=== PATIENT | female | born 1985 | race Caucasian/White ===

== ENCOUNTER 2020-09-24 10:11 | Emergency (ER) | payer SELFPAY ==
[2020-09-24] MEDS ORDERED: CEPHALEXIN 250 MG CAP ONE (12:23)
[2020-09-24] MEDS ORDERED: SMZ./TMP. 800/160 MG TABLET ONE (12:23)
--- NOTE | 2020-09-24 12:28 | ER ---
Nurse's Notes [facility] Name: Reno Call Age: 35 yrs Sex: Female : 1985 Arrival Date: 09/24/2020 Time: 10:16 Bed 8 Private MD: Diagnosis: Cutaneous abscess of right hand Presentation: 09/24 10:24 Chief complaint: Patient states: Abscess with blistering to R outer hand since last ll1 night getting progressively worse. No fever. Coronavirus screen: Client denies travel out of the [place] in the last 14 days. congestion, Client presents with at least one sign or symptom that may indicate coronavirus-19. Standard/surgical mask placed on the client. Ebola Screen: Patient denies travel to an Ebola-affected area in the 21 days before illness onset. Initial Sepsis Screen: Does the patient meet any 2 criteria? No. Patient's initial sepsis screen is negative. Does the patient have a suspected source of infection? Yes: Skin breakdown/wound. Risk Assessment: Do you want to hurt yourself or someone else? Patient reports no desire to harm self or others. Onset of symptoms was September 23, 2020. 10:24 Method Of Arrival: Ambulatory ll1 10:24 Acuity: JADA 4 ll1 Historical: - Allergies: 10:25 No Known Allergies; ll1 - PMHx: 10:25 None; ll1 - PSHx: 10:25 Cholecystectomy; ll1 - Immunization history:: Flu vaccine is not up to date. - Social history:: Smoking status: Patient denies any tobacco usage or history of. Screenin:24 Abuse screen: Denies threats or abuse. Denies injuries from another. Nutritional ph screening: No deficits noted. Tuberculosis screening: No symptoms or risk factors identified. Fall Risk None identified. Assessment: 12:10 General: Appears in no apparent distress. comfortable, Behavior is calm, cooperative, ph appropriate for age. Pain: Complains of pain in right hand. Neuro: Level of Consciousness is awake, alert, obeys commands, Oriented to person, place, time, situation. Cardiovascular: No deficits noted. Respiratory: Airway is patent Respiratory effort is even, unlabored. Derm: Skin is healthy with good turgor, Skin is pink, warm \T\ dry. Rash noted that is red, raised, vesicular, swelling and redness also noted to dorsal aspect of R hand. Musculoskeletal: Circulation, motion, and sensation intact. Range of motion: intact in all extremities. 12:36 Reassessment: Patient appears in no apparent distress at this time. Patient and/or ph family updated on plan of care and expected duration. Pain level reassessed. Patient is alert, oriented x 3, equal unlabored respirations, skin warm/dry/pink. Vital Signs: 10:24 BP 126 / 90; Pulse 89; Resp 17; Temp 98.3; Pulse Ox 100% ; Weight 91.63 kg; Height 5 ll1 ft. 3 in. (160.02 cm); Pain 6/10; 12:36 BP 118 / 86; Pulse 78; Resp 18; Temp 98.2; Pulse Ox 99% on R/A; ph 10:24 Body Mass Index 35.78 (91.63 kg, 160.02 cm) ll1 ED Course: 10:16 Patient arrived in ED. am2 10:25 Triage completed. ll1 10:25 Arm band placed on. ll1 10:30 Silvia Bautista FNP-C is PHCP. kb 10:30 Alex Morel MD is Attending Physician. kb 11:04 Patient placed in an exam room, on a stretcher. ll1 11:09 Chayito Lord, RN is Primary Nurse. ph 11:24 Patient has correct armband on for positive identification. Bed in low position. Call ph light in reach. Side rails up X 1. Pulse ox on. NIBP on. Door closed. Noise minimized. 12:37 No provider procedures requiring assistance completed. Patient did not have IV access ph during this emergency room visit. Administered Medications: 12:10 Drug: Bactrim (trimethoprim-sulfamethoxazole) (160 mg-800 mg (DS) 1 tablet Route: PO; ph 12:37 Follow up: Response: No adverse reaction ph 12:10 Drug: KeFLEX (cephalexin) 500 mg Route: PO; ph 12:37 Follow up: Response: No adverse reaction ph Outcome: 12:28 Discharge ordered by . kb 12:37 Discharged to home ambulatory. ph 12:37 Condition: good 12:37 Discharge instructions given to patient, Instructed on discharge instructions, follow up and referral plans. medication usage, Demonstrated understanding of instructions, follow-up care, medications, Prescriptions given X 2. 12:38 Patient left the ED. ph Signatures: Silvia Bautista, STEVEN-C BRUSH FILLER HAND-Chayito Bronson, RN RN ph Laura Sebastian amEscobar Tavares RN RN ll1
--- NOTE | 2020-09-24 12:28 | EDPHYS ---
Physician Documentation [facility] Name: Reno Call Age: 35 yrs Sex: Female : 1985 Arrival Date: 09/24/2020 Time: 10:16 Bed 8 Private MD: ED Physician Alex Morel HPI: 09/24 14:05 This 35 yrs old Female presents to ER via Ambulatory with complaints of Hand kb Swelling. 14:05 The patient has not recently seen a physician. kb 14:06 the patient presents with a swollen area of the dorsum of right hand and medial aspect kb of right hand. Description: erythematous, swollen, warm. Onset: The symptoms/episode began/occurred this morning. Possible cause(s): unknown. Associated signs and symptoms: Pertinent positives: erythema, swelling. Modifying factors: the symptoms are alleviated by nothing, the symptoms are aggravated by nothing. Severity of symptoms: At their worst the symptoms were moderate, in the emergency department the symptoms are unchanged. The patient has not experienced similar symptoms in the past. Pt reports she thinks she was bit by something last night because she woke up with redness and swelling to right hand. States this happens anytime she is bitten or stung by an insect. Also reports cough and congestion for a few days. Historical: - Allergies: 10:25 No Known Allergies; ll1 - PMHx: 10:25 None; ll1 - PSHx: 10:25 Cholecystectomy; ll1 - Immunization history:: Flu vaccine is not up to date. - Social history:: Smoking status: Patient denies any tobacco usage or history of. ROS: 14:03 Constitutional: Negative for fever, chills, and weight loss. kb 14:03 ENT: Positive for rhinorrhea, sinus congestion. 14:03 Respiratory: Positive for cough, Negative for dyspnea on exertion, hemoptysis, orthopnea, pleurisy, shortness of breath, sputum production, wheezing. 14:03 Skin: Positive for abscess, erythema, swelling, of the medial aspect of right hand and dorsum of right hand. 14:03 All other systems are negative. Exam: 14:04 Constitutional: This is a well developed, well nourished patient who is awake, alert, kb and in no acute distress. Head/Face: Normocephalic, atraumatic. Cardiovascular: Regular rate and rhythm with a normal S1 and S2. No gallops, murmurs, or rubs. No pulse deficits. Respiratory: Respirations even and unlabored. No increased work of breathing, no retractions or nasal flaring. Abdomen/GI: Soft, non-tender. No distention MS/ Extremity: Pulses equal, no cyanosis. Neurovascular intact. Full, normal range of motion. Neuro: Awake and alert, GCS 15, oriented to person, place, time, and situation. Moves all extremities. Normal gait. Psych: Awake, alert, with orientation to person, place and time. Behavior, mood, and affect are within normal limits. 14:04 ENT: External ear(s): are unremarkable, Ear canal(s): are normal, TM's: are normal, Nose: is normal, Mouth: is normal, Posterior pharynx: is normal. 14:04 Skin: abscess, that is small, of the medial aspect of right hand, with induration, with surrounding cellulitis, that is moderate. Vital Signs: 10:24 BP 126 / 90; Pulse 89; Resp 17; Temp 98.3; Pulse Ox 100% ; Weight 91.63 kg; Height 5 ll1 ft. 3 in. (160.02 cm); Pain 6/10; 12:36 BP 118 / 86; Pulse 78; Resp 18; Temp 98.2; Pulse Ox 99% on R/A; ph 10:24 Body Mass Index 35.78 (91.63 kg, 160.02 cm) ll1 MDM: 11:01 Patient medically screened. kb 14:02 Data reviewed: vital signs, nurses notes. Data interpreted: Pulse oximetry: on room air kb is 99 %. Interpretation: normal. Counseling: I had a detailed discussion with the patient and/or guardian regarding: the historical points, exam findings, and any diagnostic results supporting the discharge/admit diagnosis, the need for outpatient follow up, a family practitioner, to return to the emergency department if symptoms worsen or persist or if there are any questions or concerns that arise at home. 14:05 ED course: Pt evaluated by ERP as well. Recommends outpatient antibiotics. kb Administered Medications: 12:10 Drug: Bactrim (trimethoprim-sulfamethoxazole) (160 mg-800 mg (DS) 1 tablet Route: PO; ph 12:37 Follow up: Response: No adverse reaction ph 12:10 Drug: KeFLEX (cephalexin) 500 mg Route: PO; ph 12:37 Follow up: Response: No adverse reaction ph Disposition: 17:32 Co-signature as Attending Physician, Alex Morel MD. rn Disposition: 09/24/20 12:28 Discharged to Home. Impression: Cutaneous abscess of right hand. - Condition is Stable. - Discharge Instructions: Skin Abscess, [id number]. - Prescriptions for Keflex 500 mg Oral Capsule - take 1 capsule by ORAL route every 12 hours for 10 days; 20 capsule. Bactrim DS 800- 160 mg Oral Tablet - take 1 tablet by ORAL route every 12 hours for 10 days; 20 tablet. - Medication Reconciliation Form, Thank You Letter, Antibiotic Education, Prescription Opioid Use form. - Follow up: Emergency Department; When: As needed; Reason: Worsening of condition. Follow up: Private Physician; When: 2 - 3 days; Reason: Recheck today's complaints, Continuance of care, Re-evaluation by your physician. Signatures: Silvia Bautista, MVA REACTOR OPERATOR-C MVA REACTOR OPERATOR-CkAlex Almendarez MD MD rn Chayito Lord RN RN Escobar Massey RN RN ll1 Corrections: (The following items were deleted from the chart) 12:38 12:28 09/24/2020 12:28 Discharged to Home. Impression: Cutaneous abscess of right hand. ph Condition is Stable. Forms are Medication Reconciliation Form, Thank You Letter, Antibiotic Education, Prescription Opioid Use. Follow up: Emergency Department; When: As needed; Reason: Worsening of condition. Follow up: Private Physician; When: 2 - 3 days; Reason: Recheck today's complaints, Continuance of care, Re-evaluation by your physician. kb
[2020-09-24 12:45] VITALS: BP 118/86; TEMP 98.2; O2SAT 99
== END 2020-09-24 12:38 | disposition home or self-care (01) ==
LOC: ER 10:11
DX: L02.511 Cutaneous abscess of right hand (principal)
CPT/HCPCS: 99283